=== PATIENT | male | born 1980 | race Caucasian/White ===

== ENCOUNTER 2021-07-27 16:55 | Observation (INO) ==
[2021-07-27] MEDS ORDERED: methylPREDNISolone SOD SUC 125 MG/2 ML VIAL IV STA (17:25)
[2021-07-27] MEDS ORDERED: cefTRIAXone 1,000 MG in SODIUM CHLORIDE 0.9% 100 ML IV STA (17:25)
[2021-07-27] MEDS ORDERED: ALBUTEROL/IPRATROPIUM 3 ML NEB RESP TX STA ×2 (17:25→18:45)
[2021-07-27 17:34] LABS: Basophils % 0.3 % (0.0-0.8); Eosinophils # 0.1 10*3/uL (0.0-0.87); Eosinophils % 1.4 % (0.00-10.9); Hematocrit 44.9 VOL% (42.0-52.0); Hemoglobin 14.6 GM/DL (14.0-18.0); Immature Granulocytes % 0.3 %; Immature Granulocytes Absolute 0.02 #; Lymphocytes # 2.1 10*3/uL (1.4-4.0); Lymphocytes % 33.9 % (21.2-54.2); Mean Corpuscular HGB Conc 32.5 GM/DL (32-36); Mean Corpuscular Volume 89.4 FL (87-102); Monocytes # 0.4 10*3/uL (0.11-0.8); Monocytes % 6.6 % (1.7-12.7); Neutrophils % 57.5 % (38.7-73.9); Platelet Count 260 T/CUMM (130-400); Red Blood Count 5.02 MC/CUMM (3.8-5.5); Red Cell Distribution Width 13.3 % (9.3-17.3); White Blood Count 6.3 T/CUMM (4-12)
[2021-07-27 17:45] LABS: Alanine Aminotransferase 25 U/L (16-61); Albumin 3.5 G/DL (3.4-5.0); Alkaline Phosphatase 81 U/L (45-117); Aspartate Amino Transferase 17 U/L (0-37); Bilirubin,Total < 0.39 MG/DL (0.20-1.00); Blood Urea Nitrogen 8 MG/DL (7-18); Calcium 9.2 MG/DL (8.5-10.1); Carbon Dioxide 26 MMOL/L (21-32); Chloride 108 MMOL/L (98-107); Glucose 184 MG/DL (74-106); Osmolality,Calculated 281.4 MOS/KG (273-304); Potassium 3.7 MMOL/L (3.5-5.1); Sodium 140 MMOL/L (136-145); Total Protein 7.3 G/DL (6.4-8.2)
[2021-07-27] MEDS ORDERED: DEXTROSE 50% 25 GM/50 ML VIAL IV PRN (19:12)
[2021-07-27] MEDS ORDERED: GLUCAGON 1 MG VIAL IM PRN ×2 (19:12→19:14)
[2021-07-27] MEDS ORDERED: ALBUTEROL 2.5 MG/3 ML NEB RESP TX PRN (19:12)
[2021-07-27] MEDS ORDERED: ONDANSETRON 4 MG/2 ML VIAL IV PRN (19:14)
[2021-07-27] MEDS ORDERED: DEXTROSE 10% 250 ML BAG IV PRN (19:23)
[2021-07-27] MEDS ORDERED: SODIUM CHLORIDE 0.45% 1,000 ML IV SCH (20:00)
[2021-07-27] MEDS ORDERED: ENOXAPARIN 40 MG/0.4 ML SYRINGE SUBCUT SCH (21:00)
[2021-07-27] MEDS ORDERED: COLCHICINE 0.6 MG CAPSULE PO PRN (21:03)
[2021-07-27] MEDS: INSULIN REGULAR 100 UNIT/ML SUBCUT SCH (22:56)
[2021-07-27] MEDS: ACETAMINOPHEN 325 MG TABLET PO PRN (22:57)
[2021-07-28] MEDS: ALBUTEROL/IPRATROPIUM 3 ML NEB RESP TX SCH ×2 (00:26→07:10)
[2021-07-28] MEDS: methylPREDNISolone SOD SUC 40 MG/1 ML VIAL IV SCH ×2 (01:15→08:22)
[2021-07-28] MEDS: BUDESONIDE 0.5 MG/2 ML NEB RESP TX SCH ×2 (01:18→07:10)
[2021-07-28] MEDS: INSULIN REGULAR 100 UNIT/ML SUBCUT SCH ×2 (08:31→11:52)
[2021-07-28] MEDS: ACETAMINOPHEN 325 MG TABLET PO PRN (10:31)
[2021-07-28 11:48] VITALS: BP 139/64
[2021-07-28] MEDS ORDERED: cefTRIAXone 1,000 MG in SODIUM CHLORIDE 0.9% 100 ML IV SCH (17:00)
== END 2021-07-28 12:10 | disposition home or self-care (01) ==
LOC: N.ED 16:55 → N.EDINP 18:57 → INTOOBSV 18:57 → N.3E 20:43
PROVIDERS: ADMIT Internal Medicine; ATTEND Internal Medicine